=== PATIENT | female | born 1995 | race Caucasian/White ===

== ENCOUNTER 2016-03-11 16:30 | Emergency (ER) | payer MEDICAID ==
[2016-03-11 16:31] VITALS: BMI 41.2
[2016-03-11 16:41] VITALS: TEMP 98.5
[2016-03-11] MEDS ORDERED: SODIUM CHLORIDE 0.9% 3 ML FLUSH FLUSH PRN (17:10)
[2016-03-11] MEDS ORDERED: SODIUM CHLORIDE 0.9% 3 ML FLUSH FLUSH SCH (18:00)
[2016-03-11 18:18] LABS: AUTOMATED BASOPHIL 0.6 % (0-2); AUTOMATED EOSINOPHIL 0.9 % (0-5); AUTOMATED LYMPH 24.9 % (17-44); AUTOMATED MONOCYTE 6.1 % (3-10); AUTOMATED NEUTROPHIL 67.5 % (45-76); MPV 9.1 fL (7.4-10.4)
[2016-03-11 18:19] LABS: LEUKOCYTES/URINE NEG (NEGATIVE); NITRITE/URINE NEG (NEGATIVE); URINE OCCULT BLOOD NEG (NEG/TRACE)
[2016-03-11 18:24] LABS: RBC/URINE 0-2 (0-5); WBC/URINE 0-2 (0-5)
[2016-03-11 18:29] LABS: BLOOD UREA NITROGEN 11 MG/DL (7-17); CALCIUM 9.6 MG/DL (8.4-10.2); CALCULATED OSMOLALITY 267 MOs/Kg (270-290); CHLORIDE 104 mEq/L (98-107); GLUCOSE 79 MG/DL (70-99); SODIUM LEVEL 140 mEq/L (137-146); TOTAL PROTEIN 8.2 G/DL (6.3-8.2)
[2016-03-11] MEDS ORDERED: HYDROmorphone 1 MG INJECTION IV ONE (18:37)
[2016-03-11] MEDS ORDERED: ONDANSETRON HCL 4 MG/2 ML VIAL IV ONE (18:37)
[2016-03-11] MEDS ORDERED: MORPHINE 2 MG/ML INJECTION ONE (18:45)
[2016-03-11] MEDS ORDERED: MORPHINE 4 MG/ML INJECTION IV ONE (18:45)
[2016-03-11] MEDS ORDERED: Pharmacy Review for Metformin - IV Contrast Given SCH (19:00)
--- NOTE | 2016-03-11 19:11 | EDPRACDOC ---
- General Information Chief Complaint: Abdominal Pain Stated Complaint: ABDOMINAL PAIN Time Seen by Provider: 03/11/16 18:20 Information Source: Patient Mode Of Arrival: Car Home Medications: Home Medications Lisinopril/Hydrochlorothiazide [Lisinopril-Hctz 10-12.5 mg Tab] 1 tab PO HS Lovastatin 40 mg PO HS 04/08/15 Cetirizine HCl [Zyrtec] 10 mg PO HS 10/07/15 Albuterol Sulfate [Proair Hfa] 2 puff INH Q4-6H PRN 10/08/15 Fluticasone Propionate [Flonase Nasal [place]] 2 spray TANNER DAILY PRN 10/08/15 Ranitidine [Zantac] 150 mg PO BID 10/08/15 Ciprofloxacin HCl [Cipro] 500 mg PO BID #20 tab 03/11/16 Hydrocodone Bit/Acetaminophen [[place] 5-325 Tablet] 1 each PO Q4H #20 tab Ibuprofen 600 mg PO TID #20 tablet 03/11/16 Metronidazole [Flagyl] 500 mg PO BID #14 tab 03/11/16 Ondansetron HCl [Zofran] 4 mg PO Q6H PRN #20 tab 03/11/16 Venlafaxine HCl [Effexor Xr] 75 mg PO QHS 03/11/16 Allergies/Adverse Reactions: Allergies Allergy/AdvReac Type Severity Reaction Status Date / Time No Known Allergies Allergy Verified 03/11/16 16:41 - History of Present Illness Onset: 5-6 DAYS HPI: PT PRESENTS TODAY WITH INTERMITTENT RLQ PAIN X 1.5 WEEKS. PT STATES PAIN IS WORSE WITH MOVEMENT AND URINATION/DEFECATION. SOME ASSOCIATED NAUSEA/DIARRHEA. SEEN PCP TODAY AND HAD ABDOMINAL U/S THAT WAS UNREMARKABLE. PMH OF CHOLECYSTECTOMY/BTL/ X 2. NO APPARENT DISTRESS. DENIES FEVER, VOMITING, DYSURIA, VAGINAL BLEEDING/DISCHARGE. Pain Location: Reports: RLQ Pain Context: Reports: Spontaneous Pain Severity: Moderate Pain Quality: Reports: Sharp, Stabbing Pain Radiation: Reports: No Radiation : No (TUBAL) Control Method: Reports: BTL Blood Type: A+ Modifying Factors: improves with: Movement, Other (BM/URINATION) Female Associated Signs & Symptoms: Reports: Nausea, Diarrhea (SOMEWHAT WORSE THAN USUAL) Oral Intake: Normal Urinary Output: Normal - Treatment Prior to ED Arrival Reported Medications/Treatment SPRINKLER FITTER Ibuprofen/Acetaminophen (Dose/ IBUPROFEN 800MG @1400 Time) ED Past Medical History - History Reviewed Yes Nurses notes reviewed and agree except as marked - Patient Medical History Cardiac History: Reports: Hypertension Psychological History: Reports: Anxiety. Denies: Depression Systemic History: Denies: Lupus Surgical History: Reports: Cholecystectomy (2012) - Family Medical History Reports: Hypertension (MATERNAL MOTHER,AUNTS,UNCLES,GRANDPARENTS), Diabetes ( MATERNAL GRANDPARENTS), Cancer (PATERNAL GRANDMOTHER), Cardiac Disorders ( MATERNAL GRANDFATHERS,UNCLE,PATERNAL UNCLES). Denies: Stroke - Social Medical History Smoking Status: Heavy tobacco smoker (5 or more cigarettes/day or daily pipe/ cigar) EDM Review of Systems - Review of Systems ROS Negative Except as Marked: Yes All systems reviewed and were negative except as marked Constitutional: No Symptoms Reported Respiratory: No Symptoms Reported Cardiovascular: No Symptoms Reported Gastrointestinal: Diarrhea, Nausea, Pain Genitourinary: No Symptoms Reported Neurological: No Symptoms Reported Musculoskeletal: No Symptoms Reported Integumentary: No Symptoms Reported - Physical Exam Constitutional: Alert (Awake), No apparent distress Oriented to: Time, Person, Place Last recorded Vital Signs: Last Vital Signs Temp 98.5 F 03/11/16 18:02 Pulse 64 03/11/16 19:48 Resp 20 03/11/16 19:48 BP 155/67 03/11/16 19:48 Pulse Ox 95 03/11/16 19:48 Oxygen Pulse Oxygen Saturation 95 O2 Device Room Air Oxygen Flow Rate Fraction of Inspired Oxygen ( FIO2) - HEENT Head: Normal Eye Exam: Normal Neck: Normal, Denies Pain, Midline - Respiratory/Cardiovascular Respiratory: Normal - CTA Cardiovascular: Normal - GI Auscultation: Normal Palpation: Normal Tenderness: Moderate, RLQ Blankenship's Sign: Negative - Musculoskeletal Back: Normal Extremities: Normal - Integumentary Skin: Normal Lymphatics: Normal - Neurologic Cerebellar: Normal Mood Description: Normal Thought: Coherent Perception: Normal - Results 03/11/16 17:57 03/11/16 17:57 WBC 17.5 xk/uL (3.8-10.8) H 03/11/16 17:57 RBC 4.79 xM/uL (4.20-5.40) 01/17/17 17:57 Hgb 15.0 g/dL (12.0-16.0) 03/11/16 17:57 Hct 43.6 % (36-47) 03/11/16 17:57 MCV 91 fL (81-99) 03/11/16 17:57 MCH 31.4 pg (27-32) 03/11/16 17:57 MCHC 34.5 g/dl (33-36) 03/11/16 17:57 RDW 12.3 % (11.5-14.5) 03/11/16 17:57 Plt Count 266 xk/uL (130-400) 03/11/16 17:57 MPV 9.1 fL (7.4-10.4) 03/11/16 17:57 Neut % (Auto) 67.5 % (45-76) 03/11/16 17:57 Lymph % (Auto) 24.9 % (17-44) 03/11/16 17:57 [place] % (Auto) 6.1 % (3-10) 03/11/16 17:57 Eos % (Auto) 0.9 % (0-5) 03/11/16 17:57 Baso % (Auto) 0.6 % (0-2) 03/11/16 17:57 Absolute Neuts (auto) 11.73 xk/uL (1.7-8.2) H 03/11/16 17:57 Absolute Lymphs (auto) 4.20 xk/uL (0.65-4.75) 03/11/16 17:57 Sodium 140 mEq/L (137-146) 03/11/16 17:57 Potassium 3.9 mEq/L (3.5-5.1) 03/11/16 17:57 Chloride 104 mEq/L (98-107) 03/11/16 17:57 Carbon Dioxide 24 mMOL/L (22-33) 03/11/16 17:57 Anion Gap 16 mEq/L (8-16) 03/11/16 17:57 BUN 11 MG/DL (7-17) 03/11/16 17:57 Creatinine 0.60 MG/DL (0.52-1.04) 03/11/16 17:57 Estimated GFR (MDRD) > 60 mL/min (>=60) 03/11/16 17:57 Glucose 79 MG/DL (70-99) 03/11/16 17:57 Calculated Osmolality 267 MOs/Kg (270-290) L 03/11/16 17:57 Calcium 9.6 MG/DL (8.4-10.2) 03/11/16 17:57 Total Bilirubin 0.5 MG/DL (0.2-1.3) 03/11/16 17:57 AST 37 IU/L (14-36) H 03/11/16 17:57 ALT 64 IU/L (9-52) H 03/11/16 17:57 Alkaline Phosphatase 120 IU/L (38-126) 03/11/16 17:57 Total Protein 8.2 G/DL (6.3-8.2) 03/11/16 17:57 Albumin 4.4 G/DL (3.5-5.0) 03/11/16 17:57 Urine Color Yellow 03/11/16 18:03 Urine Clarity Clear 03/11/16 18:03 Urine pH 5.0 (5.0-8.0) 03/11/16 18:03 Ur Specific [place] 1.025 03/11/16 18:03 Urine Protein Neg (NEG/TRACE) 03/11/16 18:03 Urine Glucose (UA) Neg (NEGATIVE) 03/11/16 18:03 Urine Ketones Neg (NEGATIVE) 03/11/16 18:03 Urine Occult Blood Neg (NEG/TRACE) 03/11/16 18:03 Urine Nitrite Neg (NEGATIVE) 03/11/16 18:03 Urine Bilirubin Neg (NEGATIVE) 03/11/16 18:03 Urine Urobilinogen 0.2 MG/DL (0-1) 03/11/16 18:03 Ur Leukocyte Esterase Neg (NEGATIVE) 03/11/16 18:03 Urine RBC 0-2 (0-5) 03/11/16 18:03 Urine WBC 0-2 (0-5) 03/11/16 18:03 Ur Epithelial Cells 2+ 03/11/16 18:03 Urine Bacteria Few (NEG/FEW) 03/11/16 18:03 Urine Mucus Large (NEG/OCC) 03/11/16 18:03 Urine Test Neg (NEGATIVE) 03/11/16 18:03 Lab Results 03/11/16 03/11/16 03/11/16 18:03 18:03 17:57 WBC 17.5 H RBC 4.79 Hgb 15.0 Hct 43.6 MCV 91 MCH 31.4 MCHC 34.5 RDW 12.3 Plt Count 266 MPV 9.1 Neut % (Auto) 67.5 Lymph % (Auto) 24.9 [place] % (Auto) 6.1 Eos % (Auto) 0.9 Baso % (Auto) 0.6 Absolute Neuts (auto) 11.73 H Absolute Lymphs (auto) 4.20 Sodium Potassium Chloride Carbon Dioxide Anion Gap BUN Creatinine Estimated GFR (MDRD) Glucose Calculated Osmolality Calcium Total Bilirubin AST ALT Alkaline Phosphatase Total Protein Albumin Urine Color Yellow Urine Clarity Clear Urine pH 5.0 Ur Specific [place] 1.025 Urine Protein Neg Urine Glucose (UA) Neg Urine Ketones Neg Urine Occult Blood Neg Urine Nitrite Neg Urine Bilirubin Neg Urine Urobilinogen 0.2 Ur Leukocyte Esterase Neg Urine RBC 0-2 Urine WBC 0-2 Ur Epithelial Cells 2+ Urine Bacteria Few Urine Mucus Large Urine Test Neg 03/11/16 17:57 WBC RBC Hgb Hct MCV MCH MCHC RDW Plt Count MPV Neut % (Auto) Lymph % (Auto) [place] % (Auto) Eos % (Auto) Baso % (Auto) Absolute Neuts (auto) Absolute Lymphs (auto) Sodium 140 Potassium 3.9 Chloride 104 Carbon Dioxide 24 Anion Gap 16 BUN 11 Creatinine 0.60 Estimated GFR (MDRD) > 60 Glucose 79 Calculated Osmolality 267 L Calcium 9.6 Total Bilirubin 0.5 AST 37 H ALT 64 H Alkaline Phosphatase 120 Total Protein 8.2 Albumin 4.4 Urine Color Urine Clarity Urine pH Ur Specific [place] Urine Protein Urine Glucose (UA) Urine Ketones Urine Occult Blood Urine Nitrite Urine Bilirubin Urine Urobilinogen Ur Leukocyte Esterase Urine RBC Urine WBC Ur Epithelial Cells Urine Bacteria Urine Mucus Urine Test Decision Time to Discharge: 20:16 - Departure Disposition: Home Condition: Stable Final Diagnosis: Colitis Instructions: Acute Abdominal Pain (ED), Colitis (ED) Education/Counseling Given To: Patient Education/Counseling Given Regarding: Diagnosis, Treatment, Follow Up Referrals: Delores Caceres MD [Primary Care Provider] - One Week Feng Stanton MD [Staff Physician] - One Week Prescriptions: Ciprofloxacin HCl [Cipro] 500 mg PO BID #20 tab Hydrocodone Bit/Acetaminophen [[place] 5-325 Tablet] 1 each PO Q4H #20 tab Ibuprofen 600 mg PO TID #20 tablet Metronidazole [Flagyl] 500 mg PO BID #14 tab Ondansetron HCl [Zofran] 4 mg PO Q6H PRN #20 tab PRN Reason: Nausea/Vomiting Additional Instructions: LIGHT MEALS, BRAT DIET. BE SURE TO FOLLOW UP WITH PCP/GASTRO TO ENSURE RESOLUTION OF COLITIS. YOU MAY NEED A COLONOSCOPY OUTPATIENT.
[2016-03-11 19:55] VITALS: BP 155/67; PULSE 64
--- NOTE | 2016-03-11 20:00 | DIRPT ---
CLINICAL DATA: Right lower quadrant pain with nausea and fever ; elevated white blood cell count EXAM: CT ABDOMEN AND PELVIS WITH CONTRAST TECHNIQUE: Multidetector CT imaging of the abdomen and pelvis was performed using the standard protocol following bolus administration of intravenous contrast. CONTRAST: 100 mL Isovue 370 nonionic COMPARISON: None. FINDINGS: Lower chest: Lung bases are clear. Hepatobiliary: There is hepatic steatosis. No focal liver lesions are identified. The gallbladder is absent. There is no biliary duct dilatation. Pancreas: There is no pancreatic mass or inflammatory focus. Spleen: No splenic lesions are identified. Adrenals/Urinary Tract: Adrenals appear normal bilaterally. Kidneys bilaterally show no appreciable mass or hydronephrosis on either side. There is no renal or ureteral calculus on either side. Urinary bladder is midline without wall thickening. Stomach/Bowel: The colon is largely decompressed. There is mild hyperemia in the wall of the transverse colon suggesting a degree of colitis. There is no surrounding mesenteric inflammation, however. No bowel obstruction. No free air or portal venous air. Vascular/Lymphatic: There is no abdominal aortic aneurysm. The major mesenteric vessels appear patent. There is no demonstrable adenopathy in the abdomen or pelvis. There are several subcentimeter lymph nodes in the right mid to lower abdomen. Reproductive: Uterus is anteverted. There is no pelvic mass or pelvic fluid collection. Other: There is no appendiceal region inflammation. Appendix is not distended. There is no abscess or ascites in the abdomen or pelvis. Musculoskeletal: There are no blastic or lytic bone lesions. 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 No other intramuscular lesions are identified. No abdominal wall lesion. IMPRESSION: Evidence of transverse colon colitis without surrounding mesenteric thickening. No bowel obstruction. No abscess. No fistula. Appendix region appears unremarkable. There are nearby subcentimeter lymph nodes. There may be a degree of mesenteric adenitis in the right abdomen. Gallbladder absent. No renal or ureteral calculus. No hydronephrosis. Electronically Signed By: Stephane Raman III, M.D. On: 03/11/2016 19:58
[2016-03-11] MEDS ORDERED: OXYCODONE HCL 5 MG TABLET PO ONE (21:20)
== END 2016-03-11 21:34 | disposition home or self-care (01) ==
LOC: ED 16:30
DX: K52.9 Noninfective gastroenteritis and colitis, unspecified (principal); I10 Essential (primary) hypertension; F41.9 Anxiety disorder, unspecified; F17.200 Nicotine dependence, unspecified, uncomplicated; Z79.899 Other long term (current) drug therapy
CPT/HCPCS: 36415; 74177; 76705; 80053; 81001; 81025; 85025; 96374; 96375; 99283; A9698; J2270; J2405; J3490; J1170